=== PATIENT | female | born 1930 | race Caucasian/White ===

== ENCOUNTER 2017-04-13 21:06 | Emergency (ER) | payer MEDICARE ==
[~2017-04-13 21:06] MED LIST: AMIO200T2 PO; ATOR20TA58 PO; CLON0.5T3 PO; ESCITALOPRAM OX20 MG PO; FURO-68 PO; HYDR-971 PO
[2017-04-13 21:39] LABS: BASO # 0.1 x10^3/uL (0.0-0.2); BASO % 1 % (0-3); EOS # 0.2 x10^3/uL (0.0-0.7); EOS % 3 % (0-3); HEMATOCRIT 40.9 % (36.0-47.0); HEMOGLOBIN 13.1 g/dL (12.0-15.5); LYMPH # 2.1 x10^3/uL (1.0-4.8); LYMPH % 29 % (24-48); MEAN CORPUSCULAR HEMOGLOBIN 27 pg (25-35); MEAN CORPUSCULAR HGB CONC 32 g/dL (31-37); MEAN CORPUSCULAR VOLUME 85 fL (79-100); MONO # 0.8 x10^3/uL (0.0-1.1); MONO % 10 % (0-9); NEUT # 4.1 x10^3uL (1.8-7.7); NEUT % 56 % (31-73); PLATELET COUNT 183 x10^3/uL (140-400); RED CELL DISTRIBUTION WIDTH 16.9 % (11.5-14.5); WHITE BLOOD COUNT 7.3 x10^3/uL (4.0-11.0)
--- NOTE | 2017-04-13 21:52 | EKG ---
[address] [address] Test Date: 2017-04-13 Test Time: 21:40:36 Pat Name: DANIELA CONTRERAS Department: Room: Gender: F Pen Rider: [id number] : 1930 Requested By: ARANZA HERNANDEZ Order Number: [id number] Reading MD: Bruno Ponce Measurements Intervals [place] Rate: 70 P: CO: QRS: -79 QRSD: 202 T: 91 QT: 492 QTc: 535 Interpretive Statements V-PACED RHYTHM Electronically Signed On 04-16-2017 8:25:05 CDT by Bruno Ponce
[2017-04-13 21:54] LABS: ALBUMIN 3.4 g/dL (3.4-5.0); ALBUMIN/GLOBULIN RATIO 0.8 (1.0-1.7); CALCIUM 9.3 mg/dL (8.5-10.1); CREATININE 1.5 mg/dL (0.6-1.0); GFR 32.8; TOTAL BILIRUBIN 0.4 mg/dL (0.2-1.0); TOTAL PROTEIN 7.5 g/dL (6.4-8.2)
[2017-04-13] MEDS ORDERED: ASPIRIN 81 MG TAB.CHEW PO ONE (22:00)
[2017-04-13] MEDS ORDERED: HEPARIN 25,000UTS/500ML PREMIX 500 ML IV PRN (22:30)
[2017-04-13] MEDS ORDERED: NITROGLYCERIN OINT 1 GM PACKET. TP ONE (23:00)
[2017-04-13] MEDS ORDERED: HEPARIN for IV BOLUS 10,000 UNIT/10 ML VIAL. IV ONE (23:00)
[2017-04-13 23:30] VITALS: BP 164/74
[2017-04-13] MEDS ORDERED: SPIR50TA2 PO (23:56)
[2017-04-13] MEDS ORDERED: TOPI100T42 PO (23:56)
[2017-04-13] MEDS ORDERED: ESCITALOPRAM OX20 MG PO (23:56)
[2017-04-13] MEDS ORDERED: POTA10TA10 PO (23:56)
[2017-04-13] MEDS ORDERED: LEVO50TA5 PO (23:56)
[2017-04-13] MEDS ORDERED: ASPI325T8 PO (23:56)
--- NOTE | 2017-04-14 00:32 | PHYS DOC ---
Past History Past Medical History: A-Fib, CHF, GERD, Heart Disease, Hypertension, Hypothyroid Past Surgical History: Pacemaker, Other Alcohol Use: None Drug Use: None Adult General Chief Complaint Chief Complaint: CHEST PAIN HPI HPI 87-year-old female with a stent past history of pacemaker placement for symptomatic bradycardia and more recent history of placement of 2 stents in her heart by . Patient now presents to the emergency department complaining of chest pain today. She reports substernal chest pressure. Denies shortness of breath. No pleuritic pain. No productive cough or fever. Pain is not reproducible with movement. It's now improved. She does take a full strength aspirin a day and took one early this morning. Pain persisted so she came to the emergency department for evaluation Review of Systems Review of Systems Constitutional: Denies fever or chills [] Eyes: Denies change in visual acuity, redness, or eye pain [] HENT: Denies nasal congestion or sore throat [] Respiratory: Denies cough or shortness of breath [] Cardiovascular: No additional information not addressed in HPI [] GI: Denies abdominal pain, nausea, vomiting, bloody stools or diarrhea [] : Denies dysuria or hematuria [] Musculoskeletal: Denies back pain or joint pain [] Integument: Denies rash or skin lesions [] Neurologic: Denies headache, focal weakness or sensory changes [] Endocrine: Denies polyuria or polydipsia [] Current Medications Current Medications Current Medications Medications (Trade) Dose Ordered Sig/Jerzy Start Time Stop Time Status Last Admin Dose Admin Aspirin (Children'S Aspirin) 324 mg 1X ONCE 04/13/17 22:00 04/13/17 22:01 DC 04/13/17 21:44 324 MG Heparin Sodium (Porcine) (Heparin Sodium) 6,000 unit 1X ONCE 04/13/17 23:00 04/13/17 23:01 DC 04/13/17 22:57 6,000 UNIT Heparin Sodium/ Dextrose 500 ml @ 0 mls/hr CONT PRN 04/13/17 22:30 04/13/17 23:13 25 MLS/HR Nitroglycerin (Nitro-Bid Oint) 1 inch 1X ONCE 04/13/17 23:00 04/13/17 23:01 DC 04/13/17 22:46 1 INCH Allergies Allergies Allergies Coded Allergies Type Severity Reaction Last Updated Verified Sulfa (Sulfonamide Antibiotics) Allergy Intermediate 05/09/16 Yes Physical Exam Physical Exam Perfectly groomed 87-year-old female alert communicative cooperative and appropriate with a supple neck clear lungs regular rate and rhythm nontender chest wall no skin changes. Benign abdomen with no epigastric or subcostal tenderness. No CVA tenderness normal extremities Constitutional: Well developed, well nourished, no acute distress, non-toxic appearance. [] HENT: Normocephalic, atraumatic, bilateral external ears normal, oropharynx moist, no oral exudates, nose normal. [] Eyes: PERRLA, EOMI, conjunctiva normal, no discharge. [] Neck: Normal range of motion, no tenderness, supple, no stridor. [] Cardiovascular:Heart rate regular rhythm, no murmur [] Lungs & Thorax: Bilateral breath sounds clear to auscultation [] Abdomen: Bowel sounds normal, soft, no tenderness, no masses, no pulsatile masses. [] Skin: Warm, dry, no erythema, no rash. [] Back: No tenderness, no CVA tenderness. [] Extremities: No tenderness, no cyanosis, no clubbing, ROM intact, no edema. [] Neurologic: Alert and oriented X 3, normal motor function, normal sensory function, no focal deficits noted. [] Psychologic: Affect normal, judgement normal, mood normal. [] Current Patient Data Vital Signs Vital Signs Date Time Temp Pulse Resp B/P (MAP) Pulse Ox O2 Delivery O2 Flow Rate FiO2 04/13/17 23:30 70 17 164/74 (104) 97 Room Air 04/13/17 21:06 97.9 18.0 Lab Results Laboratory Tests Test 04/13/17 21:21 04/13/17 21:25 White Blood Count 7.3 x10^3/uL (4.0-11.0) Red Blood Count 4.80 x10^6/uL (3.50-5.40) Hemoglobin 13.1 g/dL (12.0-15.5) Hematocrit 40.9 % (36.0-47.0) Mean Corpuscular Volume 85 fL (79-100) Mean Corpuscular Hemoglobin 27 pg (25-35) Mean Corpuscular Hemoglobin Concent 32 g/dL (31-37) Red Cell Distribution Width 16.9 % (11.5-14.5) H Platelet Count 183 x10^3/uL (140-400) Neutrophils (%) (Auto) 56 % (31-73) Lymphocytes (%) (Auto) 29 % (24-48) Monocytes (%) (Auto) 10 % (0-9) H Eosinophils (%) (Auto) 3 % (0-3) Basophils (%) (Auto) 1 % (0-3) Neutrophils # (Auto) 4.1 x10^3uL (1.8-7.7) Lymphocytes # (Auto) 2.1 x10^3/uL (1.0-4.8) Monocytes # (Auto) 0.8 x10^3/uL (0.0-1.1) Eosinophils # (Auto) 0.2 x10^3/uL (0.0-0.7) Basophils # (Auto) 0.1 x10^3/uL (0.0-0.2) Sodium Level 141 mmol/L (136-145) Potassium Level 4.0 mmol/L (3.5-5.1) Chloride Level 105 mmol/L (98-107) Carbon Dioxide Level 26 mmol/L (21-32) Anion Gap 10 (6-14) Blood Urea Nitrogen 26 mg/dL (7-20) H Creatinine 1.5 mg/dL (0.6-1.0) H Estimated GFR (Cockcroft-Gault) 32.8 BUN/Creatinine Ratio 17 (6-20) Glucose Level 104 mg/dL (70-99) H Calcium Level 9.3 mg/dL (8.5-10.1) Total Bilirubin 0.4 mg/dL (0.2-1.0) Aspartate Amino Transferase (AST) 37 U/L (15-37) Alanine Aminotransferase (ALT) 32 U/L (14-59) Alkaline Phosphatase 112 U/L (46-116) Troponin I Quantitative 0.117 ng/mL (0-0.055) H Total Protein 7.5 g/dL (6.4-8.2) Albumin 3.4 g/dL (3.4-5.0) Albumin/Globulin Ratio 0.8 (1.0-1.7) L Prothrombin Time 11.1 SEC (9.4-11.4) Prothrombin Time INR 1.1 (0.9-1.1) PTT 23 SEC (23-33) EKG EKG EKG #1 at 05/07/39 paste rhythm at 70 left axis deviation no STEMI EKG #2 at 2204 repeated when patient's troponin returned as positive. Study with paced rhythm at 70 left axis deviation no STEMI. Unchanged from prior study.[] Radiology/Procedures Radiology/Procedures Chest x-ray with cardiomegaly and pacemaker in place chronic changes no acute disease interpreted by me[] Course & Med Decision Making Course & Med Decision Making Pertinent Labs and Imaging studies reviewed. (See chart for details) Signs and symptoms consistent with chest pain of suspected cardiac etiology. Patient very comfortable smiling and well-appearing upon her evaluation by me. Aspirin given. Troponin returned as positive at 0.117. Repeat EKG unchanged and unremarkable Case promptly discussed with cardiology coverage Dr. Ponce on- call for Dr. hendrix. He is aware of history and findings and agrees with cardiac heparinization bolus and drip protocol and inpatient admission during which he will provide cardiac consultation services. [place] Hydraulicker requests transfer patient to [facility] for anticipated cardiac catheterization in the morning. Patient with no acute contraindication to anticoagulation so heparin bolus and drip administered. Given her comfort and stability nitroglycerin paste applied to her anterior chest wall. Case discussed with Dr. Gee hospitalist on-call at [facility]. She is aware of history and findings in accepts patient for inpatient admission to the [facility] to her service for further workup and treatment as well as cardiology consultation as described. Patient stable for transfer Critical care 74 minutes[] Dragon Disclaimer Dragon Disclaimer This chart was dictated in whole or in part using Voice Recognition software in a busy, high-work load, and often noisy Emergency Department environment. It may contain unintended and wholly unrecognized errors or omissions. Departure Departure: Impression: Primary Impression: Chest pain Additional Impression: Non-ST elevated myocardial infarction (non-STEMI) Disposition: XF OTHER Condition: GUARDED Referrals: NAVJOT BARROS (PCP) Problem Qualifiers ARANZA HERNANDEZ MD Apr 14, 2017 00:32
--- NOTE | 2017-04-14 03:08 | EKG ---
[address] [address] Test Date: 2017-04-13 Test Time: 22:04:33 Pat Name: DANIELA CONTRERAS Department: Room: Gender: F Principal Consulting Engineer: BENITA : 1930 Requested By: ARANZA HERNANDEZ Order Number: [id number] Reading MD: Bruno Ponce Measurements Intervals [place] Rate: 70 P: 90 [place]: 280 QRS: -80 QRSD: 204 T: 93 QT: 492 QTc: 535 Interpretive Statements SINUS RHYTHM PROLONGED [place] INTERVAL V-PACED Electronically Signed On 04-16-2017 8:25:34 CDT by Bruno Ponce
--- NOTE | 2017-04-14 08:34 | RAD ---
Indication chest pain. A single view of the chest was obtained. No prior imaging of the chest is available. Heart size is at the upper limits of normal. There is no gross congestive heart failure. A focal infiltrate is not seen. Significant pleural fluid is not present. There is no pneumothorax. Bipolar cardiac pacing device is noted. IMPRESSION: No acute finding apparent in the chest.
== END 2017-04-13 23:45 | disposition short-term general hospital (02) ==
LOC: ER 21:06
DX: I21.4 Non-ST elevation (NSTEMI) myocardial infarction (principal); I11.0 Hypertensive heart disease with heart failure; I50.9 Heart failure, unspecified; I48.91 Unspecified atrial fibrillation; K21.9 Gastro-esophageal reflux disease without esophagitis; E03.9 Hypothyroidism, unspecified; Z95.0 Presence of cardiac pacemaker; Z88.2 Allergy status to sulfonamides
CPT/HCPCS: 36415; 71010; 80053; 84484; 85025; 85610; 85730; 93005; 96365; 99291; J1644

== ENCOUNTER → 2019-01-01 | Outpatient (CLI) | payer MEDICARE ==
[~2019-01-01] MED LIST changes: -AMIO200T2 PO; +AMIO200T4 PO; +ASPI325T8 PO; +CLON0.5T11 PO; -CLON0.5T3 PO; +HYDR-3165 PO; -HYDR-971 PO; +LEVO50TA5 PO; +POTA10TA10 PO; +SPIR50TA4 PO; +TOPI100T42 PO
--- NOTE | 2019-01-01 18:46 | RAD ---
CT Head W/O Contrast: History: Fall bruising and swelling to left orbit Comparison: none Axial images were obtained without contrast. There is moderate diffuse atrophy. There is no mass effect, extraaxial fluid collections or hydrocephalus. There is no gross bleed. Mild to moderate, patchy periventricular and subcortical white matter hypoattenuation is seen. 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 There is a large hematoma above the left orbit. There is no focal loss of allen-white matter distinction to suggest acute ischemia, i.e. stroke. Impression: No acute intracranial findings. End impression CT maxillofacial without contrast History: Pain and bruising and swelling status post fall Axial helical images of the face were obtained without contrast. Axial and coronal reconstruction was performed. There is a large hematoma anterior to and above the left orbit. The nasal septum is mildly deviated to the left. The ostiomeatal complexes are narrow but patent. The paranasal sinuses are clear. The visualized osseous structures appear intact. There is pannus posterior to the dens causing flattening of the thecal sac and effacement of CSF anterior to the cortical medullary junction. Impression: Large periorbital hematoma on the left. No fracture. PQRS Compliance Statement: One or more of the following individualized dose reduction techniques were utilized for this examination: 1. Automated exposure control 2. Adjustment of the mA and/or kV according to patient size 3. Use of iterative reconstruction technique Electronically signed by: Parker Arthur III, MD (01/01/2019 6:43 PM) [facility]
== END | disposition home or self-care (01) ==
LOC: CT 17:34
PROVIDERS: ATTEND Family Medicine
DX: S05.12XA Contusion of eyeball and orbital tissues, left eye, initial encounter (principal); G93.89 Other specified disorders of brain; H57.89 Other specified disorders of eye and adnexa; W19.XXXA Unspecified fall, initial encounter; Y93.89 Activity, other specified; Y92.89 Other specified places as the place of occurrence of the external cause; Y99.8 Other external cause status
CPT/HCPCS: 70450; 70486